=== PATIENT | male | born 2005 | race Caucasian/White ===

== ENCOUNTER 2024-11-27 22:28 | Emergency (ER) | payer MEDICAID, SELFPAY ==
[2024-11-27 22:35] VITALS: BP 139/86; PULSE 85; TEMP 36.9; O2SAT 98; BMI 35.5
--- NOTE | 2024-11-27 23:13 | ECG_ITS ---
[facility] Test Date: 2024-11-27 Pat Name: SALAZAR SYED Department: Room: - Gender: Male [employer]: : 2005 Requested By: [id number] Order Number: [id number] Reading MD: DEMOND WEINSTEIN M.D. Measurements Intervals [place] Rate: 71 P: 62 ND: 160 QRS: 76 QRSD: 94 T: -6 QT: 356 QTc: 378 Interpretive Statements 1100 Sinus rhythm 4068 Nonspecific Twave abnormality Abnormal ECG No previous ECG available for comparison Electronically Signed On 11-28-2024 9:37:32 EDT by DEMOND WEINSTEIN M.D.
--- NOTE | 2024-11-27 23:14 | ED.PSYCH1 ---
HPI - Psych General Chief Complaint: Psychiatric Symptoms Stated Complaint: SUICIDAL Time Seen by Provider: 11/27/24 22:59 Source: Reports other Source comment: EMS Mode of arrival: ambulance History of Present Illness HPI Narrative: past history of ADD. Denies past history of suicide attempt. Tonight he was going to kill himself with a gun. States he knew the gun would not go off because he put the bullet in wrong. Depressed because he states his was goingn to leave him. States his did see him with the weapon and called 911. He arrives and is cooperative. States now he feels this was a stupid idea Related Data Home Medications ?Medication ?Instructions ?Recorded ?Confirmed No Known Home Medications 11/27/24 11/27/24 Allergies Allergy/AdvReac Type Severity Reaction Status Date / Time No Known Drug Allergies Allergy Verified 11/27/24 22:34 Review of Systems ROS Status of ROS 10 or more systems reviewed and unremarkable except as noted in history and below PFSH PFSH Social History Little interest or pleasure in doing things: not at all Feeling down, depressed, or hopeless: not at all Exam Constitutional Vital Signs, click to edit/add: Last Vital Signs Temp 98.5 F 11/27/24 22:35 Pulse 85 11/27/24 22:35 Resp 18 11/27/24 22:35 BP 139/86 11/27/24 22:35 Pulse Ox 98 11/27/24 22:35 O2 Del Method Room Air 11/27/24 22:35 Common normals: no apparent distress, average body habitus, oriented x3, no limitations, healthy appearing, alert and well nourished [facility] Common normals: normocephalic and head/scalp atraumatic Eye Common normals: EOMs intact bilaterally and conjunctivae normal Respiratory Common normals: normal respiratory effort, no retractions, no use of accessory muscles and clear to auscultation bilaterally Cardio Common normals: regular rate, regular rhythm, S1 normal heart sound and S2 normal heart sound GI Common normals: Normal to inspection, nondistended, normoactive bowel sounds present and soft to palpation Extremity Common normals: normal to inspection and full ROM Neuro Common normals: oriented x3, CN's II-XII intact bilaterally, moves all extremities and no focal motor deficits Psych Appearance: grossly normal Course Vital Signs Vital signs: Vital Signs Temperature 98.5 F 11/27/24 22:35 Pulse Rate 85 11/27/24 22:35 Respiratory Rate 18 11/27/24 22:35 Blood Pressure 139/86 11/27/24 22:35 Pulse Oximetry 98 11/27/24 22:35 Oxygen Delivery Method Room Air 11/27/24 22:35 Temperature 98.5 F 11/27/24 22:35 Pulse Rate 85 11/27/24 22:35 Respiratory Rate 18 11/27/24 22:35 Blood Pressure 139/86 11/27/24 22:35 Pulse Oximetry 98 11/27/24 22:35 Oxygen Delivery Method Room Air 11/27/24 22:35 MDM - Psych MDM Narrative Medical decision making narrative: patient presents after failed suicide attempt. Labs unremarkable. He did talk to mental health and was pinked slip. Accepted for in patient admission at [address] Lab Data Labs: Lab Results 11/27/24 11/27/24 Range/Units 22:45 22:54 WBC 7.3 (4.0-11.0) 10^3/uL RBC 5.24 (4.70-6.10) 10^6/uL Hgb 14.8 (14.0-18.0) g/dL Hct 42.1 (42.0-54.0) % MCV 80.3 (80.0-94.0) fL MCH 28.2 (25.9-34.0) pg MCHC 35.2 (29.9-35.2) g/dL RDW 12.3 (11.0-15.0) % Plt Count 216 (150-450) 10^3/uL MPV 10.2 (9.5-13.5) fL Neut % (Auto) 56.1 (43.0-75.0) % Lymph % (Auto) 30.0 (20.5-60.0) % [place] % (Auto) 11.0 (1.7-12.0) % Eos % (Auto) 1.8 (0.9-7.0) % Baso % (Auto) 0.7 (0.2-2.0) % Neut # (Auto) 4.1 (1.4-6.5) 10^3/uL Lymph # (Auto) 2.2 (1.2-3.8) 10^3/uL [place] # (Auto) 0.8 (0.3-0.8) 10^3/uL Eos # (Auto) 0.1 (0.0-0.7) 10^3/uL Baso # (Auto) 0.1 (0.0-0.1) 10^3/uL Abs Immat Gran (auto) 0.03 (0.00-0.03) 10^3/uL Imm/Tot Granulo (auto) 0.4 (0.0-0.5) % Sodium 140 (136-145) mmol/L Potassium 3.8 (3.5-5.1) mmol/L Chloride 103 (98-107) mmol/L Carbon Dioxide 27.6 (21.0-32.0) mmol/L Anion Gap 13.2 BUN 14.0 (7.0-18.0) mg/dL Creatinine 0.98 (0.70-1.30) mg/dL Est GFR ( Amer) >60 (>=60 mL/min/1.73m^2) Est GFR (Non-Af Amer) >60 (>=60 mL/min/1.73m^2) BUN/Creatinine Ratio 14.3 Glucose 101 (74-106) mg/dL Calcium 9.2 (8.5-10.1) mg/dL Total Bilirubin 0.7 (0.2-1.0) mg/dL AST 29 (15-37) U/L ALT 87 H (16-63) U/L Alkaline Phosphatase 99 (46-116) U/L Total Protein 7.6 (6.4-8.2) g/dL Albumin 4.2 (3.4-5.0) g/dL Globulin 3.4 g/dL Albumin/Globulin Ratio 1.2 Salicylates <2.8 (<=19.9) mg/dL Urine Opiates Screen Negative (NEGATIVE) Ur Buprenorphine Scrn Negative (NEGATIVE) Ur Oxycodone Screen Negative (NEGATIVE) Urine Methadone Screen Negative (NEGATIVE) Acetaminophen <2.0 L (10.0-30.0) ug/mL Ur Barbiturates Screen Negative (NEGATIVE) U Tricyclic Antidepress Negative (NEGATIVE) Ur Phencyclidine Scrn Negative (NEGATIVE) Ur Amphetamines Screen Negative (NEGATIVE) U Methamphetamines Scrn Negative (NEGATIVE) U Benzodiazepines Scrn Negative (NEGATIVE) Urine Cocaine Screen Negative (NEGATIVE) U Cannabinoids Screen Negative (NEGATIVE) Ethanol Quant <3 mg/dL Discharge Plan Discharge Chief Complaint: Psychiatric Symptoms Clinical Impression: Suicide attempt Patient Disposition: [facility]
[2024-11-27 23:20] LABS: Hematocrit 42.1 % (42.0-54.0); Hemoglobin 14.8 g/dL (14.0-18.0); Immature Granulocytes Abs Auto 0.03 10^3/uL (0.00-0.03); Immature Granulocytes Pct Auto 0.4 % (0.0-0.5); Lymphocytes Absolute Auto 2.2 10^3/uL (1.2-3.8); Mean Corpuscular HGB Conc 35.2 g/dL (29.9-35.2); Mean Corpuscular Hemoglobin 28.2 pg (25.9-34.0); Mean Corpuscular Volume 80.3 fL (80.0-94.0); Platelet Count 216 10^3/uL (150-450); Red Blood Count 5.24 10^6/uL (4.70-6.10); White Blood Count 7.3 10^3/uL (4.0-11.0)
[2024-11-27 23:31] LABS: Alanine Aminotransferase 87 U/L (16-63); Albumin Globulin Ratio 1.2; Albumin Level 4.2 g/dL (3.4-5.0); Alkaline Phosphatase 99 U/L (46-116); Anion Gap 13.2; Aspartate Amino Transferase 29 U/L (15-37); Blood Urea Nitrogen 14.0 mg/dL (7.0-18.0); Calcium 9.2 mg/dL (8.5-10.1); Carbon Dioxide 27.6 mmol/L (21.0-32.0); Chloride 103 mmol/L (98-107); Estimated GFR (African America >60 (>=60 mL/min/1.73m^2); Estimated GFR (Non-African Ame >60 (>=60 mL/min/1.73m^2); Globulin 3.4 g/dL; Glucose 101 mg/dL (74-106); Potassium 3.8 mmol/L (3.5-5.1); Salicylate <2.8 mg/dL (<=19.9); Sodium 140 mmol/L (136-145); Total Protein 7.6 g/dL (6.4-8.2)
[2024-11-27 23:32] LABS: Acetaminophen <2.0 ug/mL (10.0-30.0)
[2024-11-28 00:09] LABS: Cannabinoid Screen Urine NEGATIVE (NEGATIVE); Methamphetamines Screen Urine NEGATIVE (NEGATIVE); Tricyclic Antidepressant Urine NEGATIVE (NEGATIVE)
--- NOTE | 2024-11-28 00:19 | PC.NURSE ---
this patient has been updated that we are now waiting on [facility] line personal to call her to talk to you
--- NOTE | 2024-11-28 00:36 | PC.NURSE ---
Génesis from [facility] line called and is now speaking to the patient's father
--- NOTE | 2024-11-28 00:44 | PC.NURSE ---
Génesis from [facility] line is talking to this patient right now
[2024-11-28 04:37] VITALS: BP 125/83; PULSE 74; TEMP 36.7; O2SAT 98
--- NOTE | 2024-11-28 04:37 | PC.NURSE ---
[address] has been called and spoke Radha DELUNA and i gave her patient report patient belongings given to [facility] local truck driver
== END 2024-11-28 04:37 ==
PROVIDERS: Emergency Provider Internal Medicine; PCP Family Medicine
DX: T14.91XA Suicide attempt, initial encounter (principal); F32.A Depression, unspecified
CPT/HCPCS: 36415; 80053; 80179; 80307; 80320; 80329; 85025; 93005; 99284